=== PATIENT | male | born 1965 | race Caucasian/White ===

== ENCOUNTER 2016-12-11 12:34 | Day surgery (SDC) | payer OTHER ==
[~2016-12-11] VITALS: Ht 180.3 cm; Wt 93.4 kg
[2016-12-11 14:10] VITALS: Ht 180.3 cm; Wt 93.4 kg
[2016-12-11] MEDS ORDERED: ALPR0.25 PO (14:21)
[2016-12-11] MEDS ORDERED: OMEG1CAP31 PO (14:21)
[2016-12-11] MEDS ORDERED: ATOR10TA65 PO (14:21)
[2016-12-11 14:41] VITALS: BP 131/73; PULSE 64; RESP 16
[2016-12-11] MEDS ORDERED: PROPOFOL 40 ML ONE (15:03)
[2016-12-11] MEDS ORDERED: LIDOCAINE 2% (SDV) 5 ML INJ ONE (15:03)
[2016-12-11] MEDS ORDERED: MIDAZOLAM 1 MG/ML 2 ML INJ ONE (15:16)
[2016-12-11 16:16] VITALS: BP 137/88; PULSE 63; RESP 12
--- NOTE | 2016-12-11 16:17 | GILP ---
DATE OF PROCEDURE: NAME OF PROCEDURE: Colonoscopy, biopsy and polypectomy. SURGEON: Lynn Montalvo MD PREOPERATIVE DIAGNOSIS: Screening colonoscopy. POSTOPERATIVE DIAGNOSES: 1. Colonoscopy all the way to the cecum. 2. Multiple small polyps were removed using the biopsy forceps. 3. Rectal polyp was removed using the snare and electrocautery. 4. Internal hemorrhoids. INDICATION FOR THE PROCEDURE: Mr. Moshe Lentz is a 51-year-old male patient who was scheduled for screening colonoscopy. The procedure and possible complications were well explained to the patient. The patient understood and consented to the procedure. DESCRIPTION OF PROCEDURE: Under the influence of fentanyl and Versed the colonoscope was carefully introduced in the rectum and under direct vision it was advanced all the way to the cecum. FINDINGS: The patient had a rectal polyp and it was removed using the snare and electrocautery. He had multiple small polyps and they were removed using the biopsy forceps. He was noted to have int ernal hemorrhoids. He tolerated the procedure very well and there was no complication from the procedure. At the end o f the procedure he was awake with stable vital signs and he was discharged home to the care of his [facility]. IMPRESSION: 1. Colonoscopy with anesthesia. 2. Examination all the way to the cecum. 3. Rectal polyp was removed using the snare and electrocautery. 4. Multiple small polyps were removed using the biopsy forceps. 5. Internal hemorrhoids. PLAN: Await histopathology report. Because of the multiple polyps the patient had during this exam ination, next screening colonoscopy in 3 years. Dictated By: LYNN CASTILLO/LOTTIE Conf#: [id number] DID#: [id number]
== END 2016-12-11 16:31 | disposition home or self-care (01) ==
LOC: GIL 12:34
PROVIDERS: ATTEND Internal Medicine Gastroenterology
DX: Z12.11 Encounter for screening for malignant neoplasm of colon (principal); K63.5 Polyp of colon; K62.1 Rectal polyp; E78.5 Hyperlipidemia, unspecified; F41.9 Anxiety disorder, unspecified
CPT/HCPCS: 45380; 45385; 88305; J2250; Z7610